=== PATIENT | female | born 1990 | race Caucasian/White ===

== ENCOUNTER 2019-12-24 12:23 | Emergency (ER) | payer BC ==
[2019-12-24 12:30] VITALS: BP 151/86; PULSE 80; TEMP 98.1; BMI 26.5
[2019-12-24 13:40] LABS: BASO % 2.3 % (0-2.0); EOS % 4.1 % (0-4.5); HEMATOCRIT 39.3 % (32.4-45.2); HEMOGLOBIN 13.4 GM/dl (10.7-15.3); LYMPH % 27.3 % (8-40); MCH 29.3 pg (25.7-33.7); MCHC 34.2 g/dl (32.0-36.0); MEAN CELL VOLUME 85.9 fl (80-96); MEAN PLT VOLUME 8.5 fl (7.5-11.1); MONO % 8.7 % (3.8-10.2); NEUT % 57.6 % (42.8-82.8); PLATELET COUNT 313 K/MM3 (134-434); RBC 4.58 M/mm3 (3.60-5.2); RDW 12.3 % (11.6-15.6); WHITE BLOOD COUNT 6.9 K/mm3 (4.0-10.8)
[2019-12-24 13:45] LABS: ACTIVATED PTT 28.2 SECONDS (25.2-36.5)
[2019-12-24 13:47] LABS: ALBUMIN 4.5 g/dl (3.4-5.0); BILIRUBIN,TOTAL 0.6 mg/dl (0.2-1); CALCIUM 8.9 mg/dl (8.5-10); CREATININE 0.5 mg/dl (0.55-1.3); POTASSIUM 3.9 mmol/L (3.5-5.1); TOT PROT 7.5 g/dl (6.4-8.2)
[2019-12-24 13:49] LABS: INR 1.11 (0.82-1.09); PROTHROMBIN TIME (PATIENT) 12.4 SEC (10.2-13.0)
[2019-12-24 13:57] LABS: HCG,QUALITATIVE URINE Negative
--- NOTE | 2019-12-24 13:58 | PDOC ---
History of Present Illness - General Chief Complaint: Vaginal Sxs Stated Complaint: BLEEDING BETWEEN MENSES Time Seen by Provider: 12/24/19 12:27 - History of Present Illness Initial Comments: 12/24/19 13:52 29yo female with no pmhx presents to the ER for eval of 2m hx of vaginal spotting between her menses. Pt states her FDLMP was 6-12/15. States then again on tuesday she developed lower pelvic cramping and spotting. States she has been wearing a panty liner for the spotting since tuesday. States no pain today. Pt states similar symptoms and episode in October after her menses. Pt denies feeling lightheaded or dizzy. No cp/sob. No pelvic cramping or pain today. States she called her PLANT MECHANIC today - Dr. Link on [facility] who could not see the patient today. States her insurance ends tomorrow and she wanted to be loretta luated. Pt denies all other complaints. Pt ambulated into the ER. Pmhx: denies All: nkda Past History - Medical History Allergies/Adverse Reactions: Allergies Allergy/AdvReac Type Severity Reaction Status Date / Time No Known Allergies Allergy Verified 12/24/19 12:24 Home Medications: Ambulatory Orders NK [No Known Home Medication] 12/24/19 COPD: No Other medical history: CYSTS - Psycho-Social/Smoking History Smoking History: Never smoked - Substance Abuse Hx (Audit-C & DAST Scrn) How often the patient has a drink containing alcohol: Never Score: In Men: 4 or > Positive; In Women: 3 or > Positive: 0 Screen Result (Pos requires Nsg. Audit-10AR): Negative In the last yr the pt used illegal drug/Rx for NonMed reason: No Score: Yes response is considered Positive: 0 Screen Result (Positive result requires Nsg. DAST-10): Negative Review of Systems - Review of Systems Able to Perform ROS?: Yes Is the patient limited Green[place]ic proficient: No Constitutional: Yes: Weight Stable. No: Chills, Fever, Night Sweats, Unintentional Wgt. Loss HEENTM: No: Eye Pain, Ear Pain, Throat Pain, Throat Swelling, Mouth Swelling Respiratory: No: Cough, Shortness of Breath Cardiac (ROS): No: Chest Pain, Lightheadedness ABD/GI: Yes: Abdominal cramping. No: Diarrhea, Nausea, Vomiting : Yes: Other (vaginal bleeding). No: Burning, Dysuria Musculoskeletal: No: Back Pain, Joint Pain Integumentary: No: Bruising, Rash Neurological: No: Headache, Numbness, Paresthesia, Weakness, Ataxia All Other Systems: Reviewed and Negative *Physical Exam - Vital Signs Last Vital Signs Temp Pulse Resp BP Pulse Ox 98.1 F 80 16 151/86 100 12/24/19 12:24 12/24/19 12:24 12/24/19 12:24 12/24/19 12:24 12/24/19 12:24 - Physical Exam General Appearance: Yes: Nourished, Appropriately Dressed. No: Apparent Distress HEENT: positive: EOMI, Normal Voice Neck: positive: Supple Respiratory/Chest: positive: Lungs Clear, Normal Breath Sounds. negative: Respiratory Distress Cardiovascular: positive: Regular Rhythm, Regular Rate, S1, S2 Gastrointestinal/Abdominal: positive: Soft. negative: Guarding, Rebound, Tenderness Musculoskeletal: positive: Normal Inspection. negative: CVA Tenderness Extremity: positive: Normal Capillary Refill, Normal Inspection. negative: Swelling, Calf Tenderness Integumentary: positive: Normal Color, Dry, Warm. negative: Rash Neurologic: positive: Fully Oriented, Alert, Normal Mood/Affect, Normal Response, Other (ambulatory with a steady gait) ED Treatment Course - LABORATORY CBC & Chemistry Diagram: 12/24/19 12:39 12/24/19 12:39 - ADDITIONAL ORDERS Additional order review: Laboratory Results 12/24/19 12/24/19 12:39 12:39 PT with INR 12.4 INR 1.11 PTT (Actin FS) 28.2 Sodium 136 Potassium 3.9 Chloride 103 Carbon Dioxide 25 Anion Gap 8 BUN 6.0 L Creatinine 0.5 L Est GFR (CKD-EPI)AfAm 151.59 Est GFR (CKD-EPI)NonAf 130.79 Random Glucose 94 Calcium 8.9 Total Bilirubin 0.6 AST 20 ALT 19 Alkaline Phosphatase 60 Total Protein 7.5 Albumin 4.5 12/24/19 12:39 RBC 4.58 MCV 85.9 MCHC 34.2 RDW 12.3 MPV 8.5 Neutrophils % 57.6 Lymphocytes % 27.3 Monocytes % 8.7 Eosinophils % 4.1 Basophils % 2.3 H - RADIOLOGY Radiology Studies Ordered: Category Date Time Status PELVIS(OTHER) US [US] Routine Ultrasound 12/24/19 Ordered TRANSVAGINAL ULTRASOUND US [US] Stat Ultrasound 12/24/19 12:30 Ordered Medical Decision Making - Medical Decision Making 12/24/19 13:57 a/p: 29yo female with intermittent vaginal spotting between menses -will send ucg -will send labs to check hgb -will perform pelvic exam -will send for tvus to eval poss cysts vs fibroids vs thickened endometrial lining -will most likely need outpt RESULTS TECHNICIAN evaluation as well. 12/24/19 14:12 pelvic exam: external genitalia without lesions/lumps, rashes, os closed, physiologic scant amount of white discharge, no cmt or adnexal ttp on bimanual exam, os closed, no bleeding or stigmata of bleeding. 12/24/19 14:13 pt asking for COVID ab testing, asymptomatic 12/24/19 14:13 labs reviewed and stable pending ultrasound 12/24/19 14:58 ultrasound reviewed pt stable for dc to home covid ab pending she will call medical records for results Discharge - Discharge Information Problems reviewed: Yes Clinical Impression/Diagnosis: Dysfunctional uterine bleeding Condition: Stable Disposition: HOME - Admission No - Follow up/Referral Referrals: Dr. Link,RESULTS TECHNICIAN [Other] - Patient Discharge Instructions Patient Printed Discharge Instructions: DI for Vaginal Bleeding Additional Instructions: Please call Dr. Link to schedule a follow up appointment. Your covid antibody tests are still pending. You can call medical records for your results. Please give the test a few days to result. You can take tylenol or motrin as needed for your cramping and your pain. Please follow up with your PMD and your RESULTS TECHNICIAN sincere. Please return to the ER with any further concerns or complaints. - Post Discharge Activity
[2019-12-24 14:11] LABS: EPITHELIAL CELLS RARE /hpf
== END 2019-12-24 15:18 | disposition home or self-care (01) ==
LOC: FER 12:23
DX: N93.9 Abnormal uterine and vaginal bleeding, unspecified (principal)
CPT/HCPCS: 36415; 76830-TC; 76856-TC; 80053; 81003; 81015; 84703; 85025; 85610; 85730; 86769; 86769-59; 99284-25

== ENCOUNTER 2020-12-22 08:30 | Inpatient (IN) | payer BC ==
[2020-12-22] MEDS ORDERED: DINOPROSTONE 10 MG VAGINAL SUPPOSITORY VG ONE (08:36)
[2020-12-22 10:16] LABS: BASO % 0.8 % (0-2.0); EOS % 1.2 % (0-4.5); HEMATOCRIT 35.7 % (32.4-45.2); HEMOGLOBIN 11.9 GM/dL (10.7-15.3); LYMPH % 13.6 % (8-40); MCH 27.9 pg (25.7-33.7); MCHC 33.3 g/dl (32.0-36.0); MEAN PLT VOLUME 9.4 fl (7.5-11.1); MONO % 9.3 % (3.8-10.2); NEUT % 75.1 % (42.8-82.8); PLATELET COUNT 179 10^3/uL (134-434); RBC 4.25 M/mm3 (3.60-5.2); RDW 14.7 % (11.6-15.6); WHITE BLOOD COUNT 10.3 K/mm3 (4.0-10.0)
[2020-12-22 10:18] LABS: INR 0.95 (0.83-1.09); PROTHROMBIN TIME (PATIENT) 11.5 SEC (9.7-13.0)
[2020-12-22 10:21] LABS: ACTIVATED PTT 23.9 SECONDS (25.2-36.5)
[2020-12-22 10:33] LABS: CALCIUM 8.6 mg/dL (8.5-10.1)
[2020-12-22 10:34] LABS: BLOOD UREA NITROGEN 9.2 mg/dL (7-18)
[2020-12-22 10:37] LABS: CREATININE 0.6 mg/dL (0.55-1.3)
[2020-12-22 10:58] VITALS: BMI 32.4
[2020-12-22 12:47] LABS: HIV INTERPRETATION NEGATIVE (NEGATIVE)
[2020-12-22] MEDS ORDERED: DEXTROSE 5%-LACTATED RINGERS 1,000 ML IV SCH (13:30)
[2020-12-22] MEDS ORDERED: OXYTOCIN 30 UNITS in 0.9% NS 30 UNIT/500 ML INFUS.BAG IVPB SCH (23:45)
[2020-12-23] MEDS ORDERED: OXYTOCIN 30 UNITS in 0.9% NS 30 UNIT/500 ML INFUS.BAG IVPB ONE (00:15)
[2020-12-23] MEDS ORDERED: BUTORPHANOL TARTRATE 2 MG/ML VIAL IVPB ONE (01:30)
[2020-12-23] MEDS ORDERED: PROMETHAZINE HCL 25 MG/1 ML VIAL IVPB ONE (01:30)
[2020-12-23] MEDS ORDERED: BUTORPHANOL TARTRATE 1 MG/ML VIAL ONE ×2 (01:31)
[2020-12-23] MEDS ORDERED: PROMETHAZINE HCL 25 MG/1 ML VIAL ONE (01:31)
[2020-12-23] MEDS ORDERED: FENTANYL/BUPIVACAINE/NS/PF - PCEA - 50 ML DISP.SYRIN EP ONE ×3 (04:49→13:02)
[2020-12-23] MEDS ORDERED: BUPIVACAINE HCL/PF 0.25% (2.5MG/ML) 10 ML VIAL ONE (05:08)
[2020-12-23] MEDS ORDERED: NALOXONE HCL 0.4 MG/ML VIAL IVPUSH PRN (05:28)
[2020-12-23] MEDS: FENTANYL/BUPIVACAINE/NS/PF - PCEA - 50 ML DISP.SYRIN EP SCH ×3 (05:30→13:05)
[2020-12-23] MEDS ORDERED: ELECTROLYTE-148 SOLN 1,000 ML IV ONE (06:30)
[2020-12-23] MEDS ORDERED: CITRIC ACID/SODIUM CITRATE 30 ML UNIT-DOSE CUP PO ONE (06:30)
[2020-12-23] MEDS ORDERED: PCA PUMP NR ONE (09:15)
[2020-12-23] MEDS: ELECTROLYTE-148 SOLN 1,000 ML IV SCH ×2 (09:24→11:50)
[2020-12-23] MEDS ORDERED: AMPICILLIN SODIUM 2 GM VIAL ONE (10:10)
[2020-12-23] MEDS ORDERED: SODIUM CHLORIDE 100 ML IVPB ONE ×2 (10:10→13:11)
[2020-12-23] MEDS ORDERED: AMPICILLIN - 2 GM in SODIUM CHLORIDE 100 ML IVPB ONE (10:20)
[2020-12-23] MEDS ORDERED: AMPICILLIN SODIUM 1 GM VIAL ONE (13:11)
[2020-12-23] MEDS: AMPICILLIN - 1 GM in SODIUM CHLORIDE 100 ML IVPB SCH ×2 (13:32→22:12)
[2020-12-23] MEDS ORDERED: OXYTOCIN 20 UNITS in 0.9% NS 20 UNIT/1,000 ML INFUS.BAG IV ONE (16:10)
[2020-12-23] MEDS ORDERED: WITCH HAZEL 50% (TUCKS) 40 PAD/JAR PAD TP PRN (18:43)
[2020-12-23] MEDS ORDERED: BENZOCAINE 28 GM HEMORRHOIDAL OINTMENT TP PRN (18:43)
[2020-12-23] MEDS ORDERED: METHYLERGONOVINE MALEATE 0.2 MG/1 ML AMP IM PRN (18:43)
[2020-12-23] MEDS ORDERED: BENZOCAINE 20% 57 GM BOTTLE TP PRN (18:43)
[2020-12-23] MEDS ORDERED: BISACODYL 10 MG SUPP.RECT RC PRN (18:43)
[2020-12-23] MEDS ORDERED: OXYTOCIN 20 UNITS in 0.9% NS 20 UNIT/1,000 ML INFUS.BAG IV SCH (18:45)
[2020-12-24] MEDS: IBUPROFEN 600 MG TABLET (FP) PO PRN ×3 (07:33→22:25)
[2020-12-24 08:33] LABS: BASO % 0.7 % (0-2.0); EOS % 0.4 % (0-4.5); HEMATOCRIT 31.8 % (32.4-45.2); HEMOGLOBIN 10.4 GM/dL (10.7-15.3); LYMPH % 13.9 % (8-40); MCH 27.7 pg (25.7-33.7); MCHC 32.7 g/dl (32.0-36.0); MEAN CELL VOLUME 84.5 fl (80-96); MEAN PLT VOLUME 9.6 fl (7.5-11.1); MONO % 9.4 % (3.8-10.2); NEUT % 75.6 % (42.8-82.8); PLATELET COUNT 173 10^3/uL (134-434); RBC 3.76 M/mm3 (3.60-5.2); WHITE BLOOD COUNT 16.2 K/mm3 (4.0-10.0)
[2020-12-24] MEDS: ACETAMINOPHEN 325 MG TABLET (FP) PO PRN ×2 (13:18→22:24)
[2020-12-24] MEDS ORDERED: SENNOSIDES/DOCUSATE COMBO (SENNA PLUS) TABLET (UD) PO PRN (22:00)
[2020-12-25] MEDS: IBUPROFEN 600 MG TABLET (FP) PO PRN (05:23)
[2020-12-25] MEDS: ACETAMINOPHEN 325 MG TABLET (FP) PO PRN (05:24)
[2020-12-25 09:54] VITALS: BP 123/71; PULSE 80; TEMP 98
== END 2020-12-25 12:40 | disposition home or self-care (01) | DRG 807 ==
LOC: JLDR 08:30 → J3W 09:12 → JLDR 11:40 → J3W 12-23 21:55
PROVIDERS: ADMIT Obstetrics & Gynecology; ATTEND Obstetrics & Gynecology
PROC: 3E0P7VZ Introduction of Hormone into Female Reproductive, Via Natural or Artificial Opening (ICD-10-PCS; 2020-12-22)
PROC: 10D07Z6 Extraction of Products of Conception, Vacuum, Via Natural or Artificial Opening (ICD-10-PCS; principal; 2020-12-23)
PROC: 0W8NXZZ Division of Female Perineum, External Approach (ICD-10-PCS; 2020-12-23)
PROC: 0UQGXZZ Repair Vagina, External Approach (ICD-10-PCS; 2020-12-23)
DX: O75.81 Maternal exhaustion complicating labor and delivery (principal); Z37.0 Single live birth; O99.824 Streptococcus B carrier state complicating childbirth; B95.1 Streptococcus, group B, as the cause of diseases classified elsewhere; O71.4 Obstetric high vaginal laceration alone; Z3A.39 39 weeks gestation of pregnancy
CPT/HCPCS: 36415; 59409; 80048; 85025; 85461; 85610; 85730; 86780; 86850; 86900; 86901; 86999; 87389